=== PATIENT | male | born 1990 | race Two or more races ===

== ENCOUNTER 2016-10-14 16:19 | Emergency (ER) | payer MEDICAID, OTHER ==
[~2016-10-14] VITALS: Ht 182.9 cm; Wt 93.0 kg
[~2016-10-14 16:19] MED LIST: ALBUTEROL SULF8.5 GM INH; ALLEGRA ALLERG180 M1 PO; AMOXICILLIN500 MG ORAL; AZITHROMYCIN250 MG ORAL; CLINDAMYCIN HC300 MG ORAL; CORTISPORIN EAR10 ML RIGHT EAR; FLONASE1 SPRAYS; IBUPROFEN600 MG ORAL; NKM; NORCO 5-325 TA1 EACH ORAL; PROMETHAZINE-C118 M1 ORAL
[2016-10-14 17:05] LABS: BASOPHILS % (AUTO) 1.1 % (0.0-2.0); EOSINOPHILS % (AUTO) 0.9 % (0.0-3.0); LYMPHOCYTES % (AUTO) 23.1 % (20.0-45.0); MEAN CORPUSCULAR HEMOGLOBIN 30.2 PG (27.0-31.0); MEAN CORPUSCULAR HGB CONC 33.1 G/DL (32.0-36.0); MEAN CORPUSCULAR VOLUME 91 FL (80-99); MEAN PLATELET VOLUME 7.8 FL (6.5-10.1); MONOCYTES % (AUTO) 8.5 % (1.0-10.0); NEUTROPHILS % (AUTO) 66.5 % (45.0-75.0); PLATELET COUNT 274 K/UL (150-450); WHITE BLOOD COUNT 12.3 K/UL (4.8-10.8)
[2016-10-14 17:32] LABS: TROPONIN I < 0.30 ng/mL (<=0.30)
[2016-10-14 17:33] LABS: ALANINE AMINOTRANSFERASE 22 U/L (3-41); ALBUMIN/GLOBULIN RATIO 1.6 (1.0-2.7); ANION GAP 17 (5-15); ASPARTATE AMINO TRANSFERASE 21 U/L (5-40); CALCIUM 9.6 mg/dL (8.6-10.2); CARBON DIOXIDE 24 mEQ/L (20-30); CHLORIDE 100 mEQ/L (98-107); CREATININE 0.8 mg/dL (0.7-1.2); GLOMERULAR FILTRATION RATE > 60 mL/min (>60); HEMOLYSIS 7; POTASSIUM 4.6 mEQ/L (3.4-4.9); SODIUM 141 mEQ/L (135-145); TOTAL PROTEIN 7.3 g/dL (6.6-8.7)
[2016-10-14 17:43] LABS: CKMB < 1.5 ng/mL (< 6.7)
[2016-10-14] MEDS ORDERED: Ketorolac 30mg Inj IV ONE (18:00)
[2016-10-14] MEDS ORDERED: IBUPROFEN600 MG ORAL (18:01)
[2016-10-14 18:09] VITALS: BP 104/63
--- NOTE | 2016-10-14 18:34 | Emergency Room Report ---
History of Present Illness General Chief Complaint: Chest Pain Source: Patient Present Illness HPI 26-year-old male presents to ED for evaluation. States today he developed chest pain with some shortness of breath. States pain was left-sided, 5/10, sharp, worse with deep breaths. Denies shortness of breath. Denies cardiac history. Denies smoking or drug use. Denies trauma. No other aggravating relieving factors. Denies any other associated symptoms Allergies: Coded Allergies: No Known Allergies (Unverified , 12/28/12) Patient History Past Medical History: none Past Surgical History: none Pertinent Family History: none Social History: Denies: alcohol use, drug use, smoking Immunizations: UTD Reviewed Nursing Documentation: PMH: Agreed, PSxH: Agreed Nursing Documentation-PMH Past Medical History: No Stated History Review of Systems All Other Systems: negative except mentioned in HPI Physical Exam Vital Signs Date Time Temp Pulse Resp B/P Pulse Ox O2 Delivery O2 Flow Rate FiO2 10/14/16 16:34 97.9 67 20 108/66 100 Room Air Sp02 EP Interpretation: reviewed, normal General Appearance: no apparent distress, alert, GCS 15, non-toxic Head: normocephalic, atraumatic Eyes: bilateral eye PERRL, bilateral eye normal inspection ENT: hearing grossly normal, normal pharynx, no angioedema, normal voice Neck: full range of motion, supple/symm/no masses Respiratory: lungs clear, normal breath sounds, speaking full sentences, other - reproducible chest wall pain Cardiovascular #1: regular rate, rhythm, no edema Cardiovascular #2: 2+ carotid (R), 2+ carotid (L), 2+ radial (R), 2+ radial (L) , 2+ dorsalis pedis (R), 2+ dorsalis pedis (L) Gastrointestinal: normal bowel sounds, non tender, soft, non-distended, no guarding, no rebound Rectal: deferred Genitourinary: normal inspection, no CVA tenderness Musculoskeletal: back normal, gait/station normal, normal range of motion, non- tender Neurologic: alert, oriented x3, responsive, motor strength/tone normal, sensory intact, speech normal Psychiatric: judgement/insight normal, memory normal, mood/affect normal, no suicidal/homicidal ideation Reflexes: 3+ bicep (R), 3+ bicep (L), 3+ tricep (R), 3+ tricep (L), 3+ knee (R) , 3+ knee (L) Skin: normal color, no rash, warm/dry, well hydrated Lymphatic: no adenopathy Medical Decision Making Diagnostic Impression: Primary Impression: Chest wall pain ER Course Hospital Course 26-year-old male presents ED complaining of reproducible chest wall pain Differential diagnoses include: Rib fracture, UT/unstable angina, contusion, muscle strain Clinical course Patient placed on stretcher. After initial history and physical I ordered labs , EKG, chest x-ray. labs reviewed- all electrolytes normal, troponins negative, no leukocytosis, hemoglobin/hematocrit stable, d-dimer negative EKG - NSR, no acute changes Chest x-ray-no cardiomegaly, no rib fracture, no pneumothorax, no acute process clinical findings consistent with muscle strain/costochondritis. Per HEART score patient is a low-risk for adverse cardiac event. Reassurance given. Patient given Toradol for pain. Upon reassessment patient states pain is improved. I. I feel this is a highly complex case requiring extensive working including EKG/Rhythm strip, Xray/CT/US, Blood/urine lab work, repeat exams while in ED, and administration of strong opiates/narcotics for pain control, admission to hospital or close patient follow up. Diagnosis - chest wall pain Stable and discharged to home with prescription for Motrin. Instructed to followup with PMD. Return to ED if symptoms recur or worsen Labs Test 10/14/16 16:52 White Blood Count 12.3 K/UL (4.8-10.8) Red Blood Count 4.80 M/UL (4.70-6.10) Hemoglobin 14.5 G/DL (14.2-18.0) Hematocrit 43.8 % (42.0-52.0) Mean Corpuscular Volume 91 FL (80-99) Mean Corpuscular Hemoglobin 30.2 PG (27.0-31.0) Mean Corpuscular Hemoglobin Concent 33.1 G/DL (32.0-36.0) Red Cell Distribution Width 12.0 % (11.6-14.8) Platelet Count 274 K/UL (150-450) Mean Platelet Volume 7.8 FL (6.5-10.1) Neutrophils (%) (Auto) 66.5 % (45.0-75.0) Lymphocytes (%) (Auto) 23.1 % (20.0-45.0) Monocytes (%) (Auto) 8.5 % (1.0-10.0) Eosinophils (%) (Auto) 0.9 % (0.0-3.0) Basophils (%) (Auto) 1.1 % (0.0-2.0) D-Dimer 356 ng/mL (<500) Sodium Level 141 mEQ/L (135-145) Potassium Level 4.6 mEQ/L (3.4-4.9) Chloride Level 100 mEQ/L (98-107) Carbon Dioxide Level 24 mEQ/L (20-30) Anion Gap 17 (5-15) Blood Urea Nitrogen 15 mg/dL (7-23) Creatinine 0.8 mg/dL (0.7-1.2) Estimat Glomerular Filtration Rate > 60 mL/min (>60) Glucose Level 99 mg/dL (74-106) Calcium Level 9.6 mg/dL (8.6-10.2) Total Bilirubin 0.6 mg/dL (0.0-1.2) Aspartate Amino Transf (AST/SGOT) 21 U/L (5-40) Alanine Aminotransferase (ALT/SGPT) 22 U/L (3-41) Alkaline Phosphatase 82 U/L (40-129) Total Creatine Kinase 117 U/L (38-174) Creatine Kinase MB < 1.5 ng/mL (< 6.7) Creatine Kinase MB Relative Index Troponin I < 0.30 ng/mL (<=0.30) Total Protein 7.3 g/dL (6.6-8.7) Albumin 4.5 g/dL (3.5-5.2) Globulin 2.8 g/dL Albumin/Globulin Ratio 1.6 (1.0-2.7) EKG Diagnostic Results Rate: normal Rhythm: NSR ST Segments: no acute changes ASA given to the pt in ED: No Rhythm Strip Diag. Results EP Interpretation: yes Rhythm: NSR, no PVC's, no ectopy Chest X-Ray Diagnostic Results EP Interpretation: Yes Findings: no consolidation, no effusion, no pneumothorax, no acute cardiopulmonary disease Number of Views: 1 Last Vital Signs Date Time Temp Pulse Resp B/P Pulse Ox O2 Delivery O2 Flow Rate FiO2 10/14/16 18:09 98.2 65 14 104/63 100 Room Air Status: improved Disposition: HOME, SELF-CARE Condition: Stable Scripts Ibuprofen* (MOTRIN*) 600 Mg Tablet 600 MG ORAL Q8H Y for For Pain, #30 TAB 0 Refills Prov: SEMAJ DIAZ M.D. 10/14/16 Patient Instructions: Nonspecific Chest Pain SEMAJ DIAZ M.D. Oct 14, 2016 18:34
--- NOTE | 2016-10-16 08:59 | Diagnostic Imaging Report ---
Indication: CP Technique: XRAY CHEST 1 V Comparison: 09/24/2015. Findings: The cardiomediastinal silhouette is normal. The lungs are clear. There is no evidence of pleural fluid. The bones are unremarkable. Impression: No acute abnormality. Negative chest.
--- NOTE | 2016-10-16 13:56 | Cardiology Report ---
APPROVED REPORT EKG Measurement Heart [id number] Normal sinus rhythm Normal ECG
== END 2016-10-14 18:13 | disposition home or self-care (01) ==
LOC: EMR 16:40
DX: R07.89 Other chest pain (principal); R06.02 Shortness of breath
CPT/HCPCS: 36415; 71010; 80053; 82550; 82553; 84484; 85025; 85379; 93005; 96374; 99284; J1885

== ENCOUNTER 2018-01-30 10:54 | Emergency (ER) | payer MEDICAID ==
[~2018-01-30] VITALS: Ht 180.3 cm; Wt 88.5 kg
[2018-01-30 11:09] VITALS: BP 131/82
[2018-01-30] MEDS ORDERED: LORazepam Inj 2mg/ml 1ml IV ONE (11:45)
[2018-01-30 12:24] VITALS: BP 112/71
--- NOTE | 2018-01-30 12:24 | Diagnostic Imaging Report ---
Indication: Chest pain Comparison: 10/14/2016 A single view chest radiograph was obtained. Findings: Cardiomediastinal appearance is within normal limits for age. Pulmonary vascularity is appropriate. The diaphragmatic contour is smooth and costophrenic angles are sharp. No pleural effusions are identified. The bones are unremarkable. Impression: No acute findings
[2018-01-30 12:42] LABS: BASOPHILS % (AUTO) 1.5 % (0.0-2.0); EOSINOPHILS % (AUTO) 1.1 % (0.0-3.0); HEMATOCRIT 46.2 % (42.0-52.0); HEMOGLOBIN 15.8 G/DL (14.2-18.0); MEAN CORPUSCULAR VOLUME 89 FL (80-99); MONOCYTES % (AUTO) 10.2 % (1.0-10.0); NEUTROPHILS % (AUTO) 45.1 % (45.0-75.0); PLATELET COUNT 249 K/UL (150-450); RED BLOOD COUNT 5.17 M/UL (4.70-6.10); RED CELL DISTRIBUTION WIDTH 10.6 % (11.6-14.8); WHITE BLOOD COUNT 6.6 K/UL (4.8-10.8)
[2018-01-30 12:54] LABS: ANION GAP 13 mmol/L (5-15); BLOOD UREA NITROGEN 8 mg/dL (7-18); CALCIUM 9.6 MG/DL (8.5-10.1); CARBON DIOXIDE 25 MMOL/L (21-32); CHLORIDE 103 MMOL/L (98-107); POTASSIUM 3.8 MMOL/L (3.5-5.1); SODIUM 141 MMOL/L (136-145)
[2018-01-30 12:57] LABS: INR 1.1 (0.9-1.1)
[2018-01-30 13:08] LABS: ALANINE AMINOTRANSFERASE 30 U/L (12-78); ALBUMIN 4.6 G/DL (3.4-5.0); ALBUMIN/GLOBULIN RATIO 1.3 (1.0-2.7); ALKALINE PHOSPHATASE 60 U/L (46-116); ASPARTATE AMINO TRANSFERASE 17 U/L (15-37); BILIRUBIN,TOTAL 1.8 MG/DL (0.2-1.0); CREATINE KINASE 121 U/L (26-308)
[2018-01-30 13:09] LABS: BILIRUBIN,DIRECT 0.3 MG/DL (0.0-0.3)
[2018-01-30 14:24] VITALS: BP 109/71
[2018-01-30 14:45] LABS: APPEARANCE,URINE CLEAR; BILIRUBIN, URINE NEGATIVE (NEGATIVE); COLOR,URINE PALE YELLOW; GLUCOSE, URINE (UA) NEGATIVE (NEGATIVE); KETONES,URINE 1+ (NEGATIVE); LEUKOCYTE ESTERASE ,URINE 1+ (NEGATIVE); NITRITE,URINE NEGATIVE (NEGATIVE); PH,URINE 8 (4.5-8.0); PROTEIN,URINE NEGATIVE (NEGATIVE); UROBILINOGEN,URINE NORMAL MG/DL (0.0-1.0)
--- NOTE | 2018-01-30 15:35 | Emergency Room Report ---
History of Present Illness General Chief Complaint: Pain Source: Patient Present Illness HPI Patient presents with chest pain and anxiety. This has been going on for several months. However, the chest pain has worsened over the last few days. He feels pressure substernally and has some dyspnea with this. It feels like he needs to catch his breath. Last night he had palpitations. At one point last night his heart rate was 173 according to his watch. This resolved spontaneously. Though his heart rate is normal, he feels his heart pounding. He rates the pain 6/10 in his chest, radiating to his shoulder. Not exertional or pleuritic. He has had trouble sleeping thinking about work and his family. No SI or HI. In the past he has tried melatonin, xanax which he got from a friend. The latter helped for a short period, but he has still felt anxious. Occasional nausea without vomiting. Never seen professional for help. No fevers, URI sy, leg swelling or calf pain. He has gained weight during the past few months. No headache. No rashes. No urinary sy. No polies. 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 daughter at home and girlfriend Reviewed Nursing Documentation: PMH: Agreed; PSxH: Agreed Nursing Documentation-PMH Past Medical History: No Stated History Review of Systems All Other Systems: negative except mentioned in HPI Physical Exam Vital Signs Date Time Temp Pulse Resp B/P (MAP) Pulse Ox O2 Delivery O2 Flow Rate FiO2 01/30/18 10:59 98.8 82 20 131/82 98 Room Air 98.8 Sp02 EP Interpretation: reviewed, normal General Appearance: well appearing, no apparent distress, GCS 15 Head: normocephalic, atraumatic Eyes: bilateral eye normal inspection, bilateral eye PERRL, bilateral eye EOMI ENT: moist mucus membranes Neck: supple Respiratory: chest non-tender, lungs clear, normal breath sounds Cardiovascular #1: regular rate, rhythm Cardiovascular #2: 2+ radial (R) Gastrointestinal: normal inspection, normal bowel sounds, non tender, no mass, non-distended Musculoskeletal: back normal, gait/station normal, normal range of motion, no calf tenderness Neurologic: alert, oriented x3, communication consultant III-XII nml as tested, motor strength/tone normal, DTRs symmetric, sensory intact, cerebellar normal, normal gait, speech normal Psychiatric: no suicidal/homicidal ideation, anxious Skin: normal inspection, warm/dry Medical Decision Making Diagnostic Impression: Primary Impression: Stress reaction ER Course Patient presents with chest pain and anxiety with alleged rapid heart rate last night. DDx: SVT, pericarditis, pleurisy, PE, hyperventilation, anxiety, diabetes amongst others. VS and hx against PE. Evaluation with EKG, CXR, labs. Treatment with IV hydration and cardiac observation. Patient will be given a dose of ativan. EKG NSR, no injury. CXR normal. Labs with normal CBC and CMP (min elevation bili ? lab error). Tox + THC. Improved with observation. No arrhythmia on monitor. Discussed findings and suggested treatment plan. Patient stable for outpatient observation and treatment. Laboratory Tests Test 01/30/18 11:50 01/30/18 14:22 White Blood Count 6.6 K/UL (4.8-10.8) Red Blood Count 5.17 M/UL (4.70-6.10) Hemoglobin 15.8 G/DL (14.2-18.0) Hematocrit 46.2 % (42.0-52.0) Mean Corpuscular Volume 89 FL (80-99) Mean Corpuscular Hemoglobin 30.5 PG (27.0-31.0) Mean Corpuscular Hemoglobin Concent 34.1 G/DL (32.0-36.0) Red Cell Distribution Width 10.6 % (11.6-14.8) L Platelet Count 249 K/UL (150-450) Mean Platelet Volume 7.8 FL (6.5-10.1) Neutrophils (%) (Auto) 45.1 % (45.0-75.0) Lymphocytes (%) (Auto) 42.0 % (20.0-45.0) Monocytes (%) (Auto) 10.2 % (1.0-10.0) H Eosinophils (%) (Auto) 1.1 % (0.0-3.0) Basophils (%) (Auto) 1.5 % (0.0-2.0) Erythrocyte Sedimentation Rate 2 MM/HR (0-15) Prothrombin Time 11.4 SEC (9.30-11.50) Prothrombin Time INR 1.1 (0.9-1.1) PTT 27 SEC (23-33) Sodium Level 141 MMOL/L (136-145) Potassium Level 3.8 MMOL/L (3.5-5.1) Chloride Level 103 MMOL/L (98-107) Carbon Dioxide Level 25 MMOL/L (21-32) Anion Gap 13 mmol/L (5-15) Blood Urea Nitrogen 8 mg/dL (7-18) Creatinine 1.0 MG/DL (0.55-1.30) Estimate Glomerular Filtration Rate > 60 mL/min (>60) Glucose Level 99 MG/DL (74-106) Calcium Level 9.6 MG/DL (8.5-10.1) Total Bilirubin 1.8 MG/DL (0.2-1.0) H Direct Bilirubin 0.3 MG/DL (0.0-0.3) Aspartate Amino Transferase (AST) 17 U/L (15-37) Alanine Aminotransferase (ALT) 30 U/L (12-78) Alkaline Phosphatase 60 U/L (46-116) Total Creatine Kinase 121 U/L (26-308) Troponin I 0.000 ng/mL (0.000-0.056) Total Protein 8.1 G/DL (6.4-8.2) Albumin 4.6 G/DL (3.4-5.0) Globulin 3.5 g/dL Albumin/Globulin Ratio 1.3 (1.0-2.7) Thyroid Stimulating Hormone (TSH) 0.787 uiU/mL (0.358-3.740) Serum Alcohol < 3 mg/dL Urine Color Pale yellow Urine Appearance Clear Urine pH 8 (4.5-8.0) Urine Specific [place] 1.010 (1.005-1.035) Urine Protein Negative (NEGATIVE) Urine Glucose (UA) Negative (NEGATIVE) Urine Ketones 1+ (NEGATIVE) H Urine Occult Blood Negative (NEGATIVE) Urine Nitrite Negative (NEGATIVE) Urine Bilirubin Negative (NEGATIVE) Urine Urobilinogen Normal MG/DL (0.0-1.0) Urine Leukocyte Esterase 1+ (NEGATIVE) H Urine RBC 0-2 /HPF (0 - 0) H Urine WBC 2-4 /HPF (0 - 0) Urine Squamous Epithelial Cells None /LPF (NONE/OCC) Urine Bacteria Few /HPF (NONE) Urine Opiates Screen Negative (NEGATIVE) Urine Barbiturates Screen Negative (NEGATIVE) Phencyclidine (PCP) Screen Negative (NEGATIVE) Urine Amphetamines Screen Negative (NEGATIVE) Urine Benzodiazepines Screen Negative (NEGATIVE) Urine Cocaine Screen Negative (NEGATIVE) Urine Marijuana (THC) Screen Positive (NEGATIVE) H EKG Diagnostic Results Rate: normal Rhythm: NSR ST Segments: no acute changes Rhythm Strip Diag. Results EP Interpretation: yes Rhythm: NSR, no PVC's, no ectopy Chest X-Ray Diagnostic Results Chest X-Ray Diagnostic Results : Chest X-Ray Ordered: Yes # of Views/Limited/Complete: 1 View Indication: Other EP Interpretation: Yes Interpretation: no consolidation, no effusion, no pneumothorax Impression: No acute disease Electronically Signed by: Electronically signed by Sp Jose MD Last Vital Signs Date Time Temp Pulse Resp B/P (MAP) Pulse Ox O2 Delivery O2 Flow Rate FiO2 01/30/18 15:52 98.7 78 21 128/70 100 Room Air 98.8 Status: improved Disposition: HOME, SELF-CARE Condition: Improved Referrals: [facility] (PCP) Sp Jose M.D. Jan 30, 2018 15:35
[2018-01-30 15:52] VITALS: BP 128/70
== END 2018-01-30 15:52 | disposition home or self-care (01) ==
LOC: EMR 11:46
DX: F43.9 Reaction to severe stress, unspecified (principal)
CPT/HCPCS: 36415; 71045; 80053; 80307; 80329; 81003; 82248; 82550; 84443; 84484; 85025; 85610; 85651; 85730; 93005; 96360; 96372; 99283

== ENCOUNTER 2018-02-02 04:54 | Emergency (ER) | payer MEDICAID ==
[~2018-02-02] VITALS: Ht 180.3 cm; Wt 88.5 kg
[2018-02-02] MEDS ORDERED: ATIVAN1 MG ORAL (05:09)
--- NOTE | 2018-02-02 05:10 | Emergency Room Report ---
History of Present Illness General Chief Complaint: Chest Pain Source: Patient, Significant Other Present Illness HPI Is a 27-year-old male with no past medical history. He present with chief complaint of chest pain and palpitation. He woke up said his heart was beating fast. He felt anxious and hyperventilating. His girlfriend said that he is breathing so fast that he stop breathing and passed out. Still having the symptoms. Was here 3 days ago for the same thing. Workup was unremarkable. No nausea no vomiting. Said he's been under a lot more stress. No fever chills. No diaphoresis. No exertional component. Allergies: Coded Allergies: No Known Allergies (Unverified , 12/28/12) Patient History Past Medical History: none, see triage record, old chart reviewed Past Surgical History: none Pertinent Family History: none Social History: Denies: smoking Immunizations: other Reviewed Nursing Documentation: PMH: Agreed; PSxH: Agreed Nursing Documentation-PMH Past Medical History: No History, Except For Hx Asthma: No - Bronchitis Review of Systems Eye: Denies: eye pain, blurred vision ENT: Denies: ear pain, nose congestion, throat swelling Respiratory: Reports: shortness of breath; Denies: cough Cardiovascular: Reports: chest pain, palpitations Gastrointestinal: Denies: abdominal pain, diarrhea, nausea, vomiting Musculoskeletal: Denies: back pain, joint pain Skin: Denies: rash Neurological: Denies: headache, numbness Endocrine: Denies: increased thirst, increased urine Hematologic/Lymphatic: Denies: easy bruising All Other Systems: negative except mentioned in HPI Physical Exam Vital Signs Date Time Temp Pulse Resp B/P (MAP) Pulse Ox O2 Delivery O2 Flow Rate FiO2 02/02/18 04:59 97.0 87 15 136/74 100 Room Air 97.0 vitals normal Sp02 EP Interpretation: reviewed, normal General Appearance: well appearing, no apparent distress, alert Head: normocephalic, atraumatic Eyes: bilateral eye PERRL, bilateral eye EOMI ENT: hearing grossly normal, normal pharynx Neck: full range of motion, supple, no meningismus Respiratory: chest non-tender, lungs clear, normal breath sounds Cardiovascular #1: regular rate, rhythm, no murmur Gastrointestinal: normal bowel sounds, non tender, no mass, no organomegaly, no bruit, non-distended Musculoskeletal: back normal, gait/station normal, normal range of motion Psychiatric: anxious Skin: warm/dry Medical Decision Making Diagnostic Impression: Primary Impression: Panic attack ER Course Patient presents with anxiety/panic attack. No evidence of ACS, PE, dissection to name a few. We'll discharge home. EKG Diagnostic Results Rate: normal Rhythm: NSR ST Segments: no acute changes Rhythm Strip Diag. Results Rhythm Strip Time: 05:08 EP Interpretation: yes Rhythm: NSR - 78 Other Impression 78 Last Vital Signs Date Time Temp Pulse Resp B/P (MAP) Pulse Ox O2 Delivery O2 Flow Rate FiO2 02/02/18 05:03 87 15 Room Air 02/02/18 04:59 97.0 136/74 100 97.0 Status: improved Disposition: HOME, SELF-CARE Condition: Stable Scripts Lorazepam* (ATIVAN*) 1 Mg Tablet 1 MG ORAL THREE TIMES A DAY for anxiety, #21 TAB Prov: AMADOU GUIDRY M.D. 02/02/18 Referrals: [facility] (PCP) Additional Instructions: Follow-up your doctor in a week. You may benefit from referral to see a psychologist or psychiatrist. You may need a Holter monitor or see a bordereau clerk for further workup also. Return if worse. AAMDOU GUIDRY M.D. Feb 02, 2018 05:10
[2018-02-02] MEDS ORDERED: LORazepam Inj 2mg/ml 1ml IM ONE (05:15)
[2018-02-02 05:18] VITALS: BP 136/74
== END 2018-02-02 05:20 | disposition home or self-care (01) ==
LOC: EMR 05:04
DX: F41.0 Panic disorder [episodic paroxysmal anxiety] (principal); R00.2 Palpitations
CPT/HCPCS: 96372; 99283

== ENCOUNTER 2018-02-11 21:51 | Emergency (ER) | payer MEDICAID ==
[~2018-02-11] VITALS: Ht 180.3 cm; Wt 88.5 kg
[~2018-02-11 21:51] MED LIST changes: +ATIVAN1 MG ORAL
[2018-02-11] MEDS ORDERED: LEXAPRO10 MG ORAL (21:56)
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
[2018-02-11] MEDS ORDERED: IBUPROFEN600 MG ORAL (23:41)
[2018-02-11] MEDS ORDERED: TRAMADOL HCL50 MG ORAL (23:41)
[2018-02-12 00:04] VITALS: BP 0/0
--- NOTE | 2018-02-12 11:24 | Diagnostic Imaging Report ---
Indication: Pain Technique: XRAY Ankle Compl Min 3v R Comparison: None Findings: Soft tissue swelling about the medial malleolus. No evidence of acute fracture. Ankle mortise intact on these nonstress views. No appreciable ankle joint effusion. Imaged hindfoot grossly unremarkable. No radiopaque foreign body seen. Impression: Soft tissue swelling about the medial malleolus. No evidence of acute fracture.
== END 2018-02-12 00:04 | disposition home or self-care (01) ==
LOC: EMR 22:20
DX: S93.401A Sprain of unspecified ligament of right ankle, initial encounter (principal); X50.1XXA Overexertion from prolonged static or awkward postures, initial encounter; Y93.75 Activity, martial arts; Y92.9 Unspecified place or not applicable; F41.9 Anxiety disorder, unspecified; F32.9 Major depressive disorder, single episode, unspecified
CPT/HCPCS: 99284

== ENCOUNTER 2018-03-23 09:44 | Emergency (ER) | payer MEDICAID ==
[~2018-03-23] VITALS: Ht 180.3 cm; Wt 88.5 kg
[~2018-03-23 09:44] MED LIST changes: +LEXAPRO10 MG ORAL; +TRAMADOL HCL50 MG ORAL
[2018-03-23 09:49] VITALS: BP 119/75
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
[2018-03-23 10:07] VITALS: BP 119/75
== END 2018-03-23 10:10 | disposition home or self-care (01) ==
LOC: EMR 10:05
DX: Z48.02 Encounter for removal of sutures (principal)
CPT/HCPCS: 99282

== ENCOUNTER 2019-06-09 20:00 | Emergency (ER) | payer MEDICAID ==
[~2019-06-09] VITALS: Ht 180.3 cm; Wt 88.5 kg
[2019-06-09] MEDS ORDERED: Omnipaque-300 100ml vial INJ PRN (20:15)
[2019-06-09 20:30] VITALS: BP 129/89
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
[2019-06-09 21:01] LABS: BASOPHILS % (AUTO) 0.7 % (0.0-2.0); EOSINOPHILS % (AUTO) 0.5 % (0.0-3.0); HEMATOCRIT 41.8 % (42.0-52.0); HEMOGLOBIN 14.9 G/DL (14.2-18.0); LYMPHOCYTES % (AUTO) 31.8 % (20.0-45.0); MEAN CORPUSCULAR VOLUME 87 FL (80-99); MONOCYTES % (AUTO) 9.6 % (1.0-10.0); NEUTROPHILS % (AUTO) 57.4 % (45.0-75.0); PLATELET COUNT 315 K/UL (150-450); RED BLOOD COUNT 4.81 M/UL (4.70-6.10); RED CELL DISTRIBUTION WIDTH 10.5 % (11.6-14.8); WHITE BLOOD COUNT 11.7 K/UL (4.8-10.8)
--- NOTE | 2019-06-09 21:01 | Emergency Room Report ---
History of Present Illness General Chief Complaint: Allergic Reaction Source: Patient Present Illness HPI 28-year-old male presents with palpitations, left flank pain, since 6:00pm, patient took a thermogenic fat burner known as Lipo Lauren. Patient then started having palpitations, left flank pain he states his urine turned a different color, he felt hot, aggravated by neurogenic fat burner, no alleviating factors severity is moderate, constant patient presents for evaluation Allergies: Coded Allergies: No Known Allergies (Unverified , 12/28/12) Patient History Past Medical History: see triage record Reviewed Nursing Documentation: PMH: Agreed; PSxH: Agreed Nursing Documentation-PMH Hx Asthma: No - Bronchitis History Of Psychiatric Problem: Yes - depression; insomnia Review of Systems All Other Systems: negative except mentioned in HPI Physical Exam Vital Signs Date Time Temp Pulse Resp B/P (MAP) Pulse Ox O2 Delivery O2 Flow Rate FiO2 06/09/19 20:01 98.4 101 19 129/89 (102) 98 Room Air Sp02 EP Interpretation: reviewed, normal General Appearance: well appearing, no apparent distress, alert Head: normocephalic, atraumatic Eyes: bilateral eye PERRL, bilateral eye EOMI ENT: uvula midline, dry mucus membranes Neck: supple, thyroid normal, supple/symm/no masses Respiratory: lungs clear, no respiratory distress, no retraction, no accessory muscle use Cardiovascular #1: normal peripheral pulses, no edema, no gallop, no murmur, tachycardia Gastrointestinal: non tender, soft, no guarding, no rebound Musculoskeletal: normal inspection Neurologic: alert, oriented x3 Psychiatric: anxious Skin: no rash, warm/dry Medical Decision Making Diagnostic Impression: Primary Impression: Rhabdomyolysis Qualified Codes: M62.82 - Rhabdomyolysis Additional Impression: Adverse drug effect Qualified Codes: T50.905A - Adverse effect of unspecified drugs, medicaments and biological substances, initial encounter ER Course 28-year-old male presents with muscle aches, left flank pain, after taking a pill at the gym which was a supplement. Patient with elevated CK, now downtrending with fluid rehydration, counseled patient not to take supplements, Counseled patient to take 1 to 2 days off work no heavy lifting, continue rehydration therapy Disposition home with return precautions joint decision-making was made with patient Laboratory Tests Test 06/09/19 20:50 06/09/19 22:30 06/09/19 22:57 White Blood Count 11.7 K/UL (4.8-10.8) H Red Blood Count 4.81 M/UL (4.70-6.10) Hemoglobin 14.9 G/DL (14.2-18.0) Hematocrit 41.8 % (42.0-52.0) L Mean Corpuscular Volume 87 FL (80-99) Mean Corpuscular Hemoglobin 30.9 PG (27.0-31.0) Mean Corpuscular Hemoglobin Concent 35.6 G/DL (32.0-36.0) Red Cell Distribution Width 10.5 % (11.6-14.8) L Platelet Count 315 K/UL (150-450) Mean Platelet Volume 6.9 FL (6.5-10.1) Neutrophils (%) (Auto) 57.4 % (45.0-75.0) Lymphocytes (%) (Auto) 31.8 % (20.0-45.0) Monocytes (%) (Auto) 9.6 % (1.0-10.0) Eosinophils (%) (Auto) 0.5 % (0.0-3.0) Basophils (%) (Auto) 0.7 % (0.0-2.0) Prothrombin Time 10.7 SEC (9.30-11.50) Prothrombin Time INR 1.0 (0.9-1.1) PTT 27 SEC (23-33) D-Dimer 0.45 mg/L FEU (0.00-0.49) Sodium Level 143 MMOL/L (136-145) Potassium Level 3.5 MMOL/L (3.5-5.1) Chloride Level 105 MMOL/L (98-107) Carbon Dioxide Level 24 MMOL/L (21-32) Anion Gap 14 mmol/L (5-15) Blood Urea Nitrogen 15 mg/dL (7-18) Creatinine 1.1 MG/DL (0.55-1.30) Estimate Glomerular Filtration Rate > 60 mL/min (>60) Glucose Level 111 MG/DL (74-106) H Calcium Level 9.6 MG/DL (8.5-10.1) Total Bilirubin 1.2 MG/DL (0.2-1.0) H Direct Bilirubin < 0.1 MG/DL (0.0-0.3) Aspartate Amino Transferase (AST) 53 U/L (15-37) H Alanine Aminotransferase (ALT) 49 U/L (12-78) Alkaline Phosphatase 86 U/L (46-116) Total Creatine Kinase 1403 U/L (26-308) H 1027 U/L (26-308) H Troponin I 0.000 ng/mL (0.000-0.056) Total Protein 8.1 G/DL (6.4-8.2) Albumin 4.2 G/DL (3.4-5.0) Globulin 3.9 g/dL Albumin/Globulin Ratio 1.1 (1.0-2.7) Lipase 92 U/L (73-393) Urine Color Pale yellow Urine Appearance Clear Urine pH 7 (4.5-8.0) Urine Specific [place] 1.005 (1.005-1.035) Urine Protein Negative (NEGATIVE) Urine Glucose (UA) Negative (NEGATIVE) Urine Ketones Negative (NEGATIVE) Urine Blood Negative (NEGATIVE) Urine Nitrite Negative (NEGATIVE) Urine Bilirubin Negative (NEGATIVE) Urine Urobilinogen Normal MG/DL (0.0-1.0) Urine Leukocyte Esterase Negative (NEGATIVE) Urine Opiates Screen Negative (NEGATIVE) Urine Barbiturates Screen Negative (NEGATIVE) Phencyclidine (PCP) Screen Negative (NEGATIVE) Urine Amphetamines Screen Negative (NEGATIVE) Urine Benzodiazepines Screen Negative (NEGATIVE) Urine Cocaine Screen Negative (NEGATIVE) Urine Marijuana (THC) Screen Positive (NEGATIVE) H CT/MRI/US Diagnostic Results CT/MRI/US Diagnostic Results : Impression Preliminary Findings Only See Final Report For Complete Findings CT ABDOMEN & PELVIS With Contrast: INDICATION: pain TECHNIQUE: Multiple, contiguous axial cuts of the abdomen and pelvis are obtained from the lung bases to the ischial tuberosities following the administration of IV contrast. Sagittal and coronal reformatted images are available. COMPARISON: none FINDINGS: The lung bases are clear. The liver and spleen are normal in size and free of mass lesions. The gallbladder, bile ducts and pancreas are normal. The adrenal gland are unremarkable. The kidneys are normal in size and contour. No lesion or hydronephrosis. The appendix is unremarkable, as is the rest of the GI tract. Aorta is normal caliber. No adenopathy or extraluminal air. The osseous structures are normal IMPRESSION: Normal enhanced CT of the abdomen and pelvis. CT CHEST With Contrast: INDICATION: pain TECHNIQUE: Multiple, contiguous 5 mm axial cuts of the chest are obtained following the administration of IV contrast. High resolution axial images as well as sagittal and coronal reformatted images are available. COMPARISON: none FINDINGS: No mass lesion are seen. No adenopathy , pneumothorax or effusions. The aorta is within normal limits, no aneurysm or dissection. The cardiomediastinal structures are normal. The lungs are clear. The osseous structures are unremarkable. IMPRESSION: Normal CT Chest with contrast. Radiologist: Gia Alonso MD Study ready at 22:37 and initial results transmitted at 22:46 Last Vital Signs Date Time Temp Pulse Resp B/P (MAP) Pulse Ox O2 Delivery O2 Flow Rate FiO2 06/09/19 20:01 98.4 101 19 129/89 (102) 98 Room Air Disposition: HOME, SELF-CARE Condition: Stable Referrals: [facility] Jace Malik [facility]. [facility] Patient Instructions: Rhabdomyolysis Additional Instructions: The patient was provided with discharge instructions, notified to follow-up with a primary care doctor and or specialist in the next 24-48 hours, and to return to the ED if they have worsening of their symptoms. Please note that this report is being documented using [employer] technology. This can lead to erroneous entry secondary to incorrect interpretation by the dictating instrument. PLEASE DO NOT TAKE ANYMORE GYM SUPPLEMENTS. Presley Meléndez MD Jun 09, 2019 21:01
[2019-06-09 21:27] LABS: ANION GAP 14 mmol/L (5-15); BLOOD UREA NITROGEN 15 mg/dL (7-18); CALCIUM 9.6 MG/DL (8.5-10.1); CARBON DIOXIDE 24 MMOL/L (21-32); CHLORIDE 105 MMOL/L (98-107); CREATININE 1.1 MG/DL (0.55-1.30); POTASSIUM 3.5 MMOL/L (3.5-5.1); SODIUM 143 MMOL/L (136-145)
[2019-06-09 21:37] LABS: ALANINE AMINOTRANSFERASE 49 U/L (12-78); ALBUMIN 4.2 G/DL (3.4-5.0); ALBUMIN/GLOBULIN RATIO 1.1 (1.0-2.7); ALKALINE PHOSPHATASE 86 U/L (46-116); ASPARTATE AMINO TRANSFERASE 53 U/L (15-37); BILIRUBIN,TOTAL 1.2 MG/DL (0.2-1.0)
[2019-06-09 21:43] LABS: BILIRUBIN,DIRECT < 0.1 MG/DL (0.0-0.3)
--- NOTE | 2019-06-09 21:54 | NUR ---
ED Nurse Note: PT TAKEN TO CT
[2019-06-09 22:05] LABS: CREATINE KINASE 1403 U/L (26-308)
--- NOTE | 2019-06-09 22:08 | NUR ---
ED Nurse Note: PT RETURNED FROM CT
[2019-06-09 22:12] VITALS: BP 124/88
--- NOTE | 2019-06-09 22:16 | Emergency Room Report ---
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 Patient appears to be slightly dehydrated. Complains of history of anxiety and also taking propranolol as well as Lexapro. Complains of lower back pain however denies pleuritic chest pain and palpitations at this time. Denies headache and dizziness.. Patient appears try putting complaining of left flank pain rating a 10 out of 10. Reports that he also had fresh blood in stool and hematuria. Denies fever and chills. Slightly diaphoretic. Denies drug use, alcohol intake, tobacco smoke. (Laz Ellison) Allergies: Coded Allergies: No Known Allergies (Unverified , 12/28/12) Patient History Past Medical History: see triage record Past Surgical History: unable to obtain Pertinent Family History: none Immunizations: UTD Reviewed Nursing Documentation: PMH: Agreed; PSxH: Agreed (Laz Ellison) Nursing Documentation-PMH Hx Asthma: No - Bronchitis History Of Psychiatric Problem: Yes - depression; insomnia (Laz Ellison) Review of Systems All Other Systems: negative except mentioned in HPI (Laz Ellison) Physical Exam Vital Signs Date Time Temp Pulse Resp B/P (MAP) Pulse Ox O2 Delivery O2 Flow Rate FiO2 06/09/19 20:01 98.4 101 19 129/89 (102) 98 Room Air Sp02 EP Interpretation: abnormal - Tachycardic General Appearance: no apparent distress, alert, GCS 15, non-toxic, mild distress Head: normocephalic, atraumatic Eyes: bilateral eye normal inspection, bilateral eye PERRL ENT: hearing grossly normal, normal pharynx, no angioedema, normal voice Neck: full range of motion, supple, supple/symm/no masses Respiratory: chest non-tender, lungs clear, normal breath sounds, no rhonchi, no respiratory distress, no retraction, no accessory muscle use, no wheezing, speaking full sentences Cardiovascular #1: regular rate, rhythm, no edema, no gallop, no JVD, no murmur Cardiovascular #2: 2+ carotid (R), 2+ carotid (L), 2+ radial (R), 2+ radial (L) Gastrointestinal: normal bowel sounds, non tender, soft, no mass, non-distended , no guarding, no hernia, no pulsatile mass, no rebound Rectal: deferred Genitourinary: no CVA tenderness Musculoskeletal: back normal, gait/station normal, normal range of motion, non- tender, no calf tenderness Neurologic: alert, oriented x3, responsive, motor strength/tone normal, sensory intact, speech normal Psychiatric: judgement/insight normal, memory normal, mood/affect normal, no suicidal/homicidal ideation Skin: no rash Lymphatic: no adenopathy (Laz Ellison) Medical Decision Making PA Attestation All my diagnosis and treatment plans were reviewed ad discussed with my supervising physician Dr. 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 Patient appears to be slightly dehydrated. Complains of history of anxiety and also taking propranolol as well as Lexapro. Complains of lower back pain however denies pleuritic chest pain and palpitations at this time. Denies headache and dizziness.. Patient appears try putting complaining of left flank pain rating a 10 out of 10. Reports that he also had fresh blood in stool and hematuria. Denies fever and chills. Slightly diaphoretic. Denies drug use, alcohol intake, tobacco smoke. Ddx considered but are not limited to: appendicitis, cholecystis, gastritis, gastroenteritis, UTI, pyelonephritis, SBO, diverticulitis, rhabdomyolysis Vital signs: are WNL, pt. is afebrile H&PE are most consistent with: abdominal pain, sob ORDERS: abdominal CT, abdominal pain set, EKG, ED INTERVENTIONS: Breathing treatment, NS bolus, Zofran I signed the patient to Dr. Meléndez at 10:00 PM . Patient stable at time of signout (Laz Ellison) ER Course Signout received refer to my note Preliminary Findings Only See Final Report For Complete Findings CT ABDOMEN & PELVIS With Contrast: INDICATION: pain TECHNIQUE: Multiple, contiguous axial cuts of the abdomen and pelvis are obtained from the lung bases to the ischial tuberosities following the administration of IV contrast. Sagittal and coronal reformatted images are available. COMPARISON: none FINDINGS: The lung bases are clear. The liver and spleen are normal in size and free of mass lesions. The gallbladder, bile ducts and pancreas are normal. The adrenal gland are unremarkable. The kidneys are normal in size and contour. No lesion or hydronephrosis. The appendix is unremarkable, as is the rest of the GI tract. Aorta is normal caliber. No adenopathy or extraluminal air. The osseous structures are normal IMPRESSION: Normal enhanced CT of the abdomen and pelvis. CT CHEST With Contrast: INDICATION: pain TECHNIQUE: Multiple, contiguous 5 mm axial cuts of the chest are obtained following the administration of IV contrast. High resolution axial images as well as sagittal and coronal reformatted images are available. COMPARISON: none FINDINGS: No mass lesion are seen. No adenopathy , pneumothorax or effusions. The aorta is within normal limits, no aneurysm or dissection. The cardiomediastinal structures are normal. The lungs are clear. The osseous structures are unremarkable. IMPRESSION: Normal CT Chest with contrast. Radiologist: Gia Alonso MD Study ready at 22:37 and initial results transmitted at 22:46 (Presley Meléndez MD) EKG Diagnostic Results Rate: tachycardiac Rhythm: other - tachy ST Segments: no acute changes Other Impression no acute ST changes (Laz Ellison) Chest X-Ray Diagnostic Results Chest X-Ray Diagnostic Results : Chest X-Ray Ordered: Yes # of Views/Limited/Complete: 1 View Indication: Shortness of Breath EP Interpretation: Yes PA Xray: Interpretation reviewed, by supervising , and agrees with findings. Interpretation: no consolidation, no effusion, no pneumothorax Impression: No acute disease Electronically Signed by: Laz Call PA-C) Last Vital Signs Date Time Temp Pulse Resp B/P (MAP) Pulse Ox O2 Delivery O2 Flow Rate FiO2 11/4/19 20:30 98.4 98 19 129/89 98 Room Air (Laz Ellison) Laz Ellison Jun 09, 2019 22:16 Presley Meléndez MD Jun 10, 2019 00:12
--- NOTE | 2019-06-09 22:47 | Diagnostic Imaging Report ---
CLINICAL INDICATION:Left flank pain, blood in stool, shortness of breath TECHNIQUE: No oral contrast, per emergency room physician request. IV administration nonionic contrast. Multiphasic spiral acquisitions obtained through the chest, abdomen, and pelvis. Multiplanar reconstructions were generated. Total dose length product 1938 mGycm. CTDIvol(s) 16, 16 mGy. Radiation dose was minimized using automated exposure control COMPARISON: none FINDINGS Chest: The lungs are clear. No infiltrates, effusions, masses, congestion, or nodules. The heart size is normal. No pericardial effusion. No mediastinal or hilar mass or adenopathy. The included thyroid is unremarkable. No axillary or chest wall mass or adenopathy. The bones are unremarkable. Abdomen pelvis: Normal appendix. No evidence of diverticulosis or diverticulitis. No small bowel distention. There is questionably mild wall thickening of left upper quadrant jejunal loops. No free or loculated intraperitoneal gas or fluid is evident. The stomach and duodenum are unremarkable. The gallbladder is nondistended. The liver, bile ducts, pancreas, spleen, adrenals, kidneys are unremarkable. No renal or ureteral calculi, hydronephrosis, or hydroureter. No pelvic mass or adenopathy. The bones are unremarkable. IMPRESSION: Negative. No evidence of acute or significant thoracic, abdominal, or pelvic pathology This agrees with the preliminary interpretation provided overnight by [facility] teleradiology service. The CT scanner at [facility] is accredited by the [employer] and the scans are performed using protocols designed to limit radiation exposure to as low as reasonably achievable to attain images of sufficient resolution adequate for diagnostic evaluation.
[2019-06-09 22:54] LABS: APPEARANCE,URINE CLEAR; BILIRUBIN, URINE NEGATIVE (NEGATIVE); COLOR,URINE PALE YELLOW; GLUCOSE, URINE (UA) NEGATIVE (NEGATIVE); KETONES,URINE NEGATIVE (NEGATIVE); LEUKOCYTE ESTERASE ,URINE NEGATIVE (NEGATIVE); NITRITE,URINE NEGATIVE (NEGATIVE); PH,URINE 7 (4.5-8.0); PROTEIN,URINE NEGATIVE (NEGATIVE); UROBILINOGEN,URINE NORMAL MG/DL (0.0-1.0)
[2019-06-09 23:49] LABS: CREATINE KINASE 1027 U/L (26-308)
[2019-06-10 00:12] VITALS: BP 119/85
[2019-06-10 00:15] VITALS: BP 119/89
--- NOTE | 2019-06-10 00:15 | NUR ---
ER DISCHARGE NOTE: Patient is cleared to be discharged per ERMD, pt is aox4, on room air, with stable vital signs. pt was given dc and prescription instructions, pt was able to verbalize understanding, pt id band and iv site removed without complications. pt is able to ambulate with steady gait. pt took all belongings.
--- NOTE | 2019-06-10 12:19 | Diagnostic Imaging Report ---
Indication: Chest pain Technique: One view of the chest Comparison: 01/30/2018 Findings: Lungs and pleural spaces are clear. Heart size is normal. No significant change Impression: No acute process
--- NOTE | 2019-06-13 11:32 | Cardiology Report ---
APPROVED REPORT EKG Measurement Heart [id number] Normal sinus rhythm Normal ECG
== END 2019-06-10 00:15 | disposition home or self-care (01) ==
LOC: EMR 20:17
DX: R10.9 Unspecified abdominal pain (principal); R06.02 Shortness of breath; E86.0 Dehydration; F41.9 Anxiety disorder, unspecified; Z79.899 Other long term (current) drug therapy; G47.00 Insomnia, unspecified; F32.9 Major depressive disorder, single episode, unspecified; R00.0 Tachycardia, unspecified
CPT/HCPCS: 36415; 71045; 71260; 74177; 80053; 80307; 81003; 82248; 82550; 83690; 84484; 85025; 85379; 85610; 85730; 86850; 86900; 86901; 93005; 96361; 96374; J2405; Q9967; Z7502; 99284; J7030

== ENCOUNTER 2019-06-12 13:16 | Emergency (ER) | payer MEDICAID ==
[~2019-06-12] VITALS: Ht 180.3 cm; Wt 88.5 kg
[2019-06-12 13:43] VITALS: BP 98/64
[2019-06-12 14:17] LABS: APPEARANCE,URINE CLEAR; BILIRUBIN, URINE NEGATIVE (NEGATIVE); COLOR,URINE PALE YELLOW; GLUCOSE, URINE (UA) NEGATIVE (NEGATIVE); KETONES,URINE NEGATIVE (NEGATIVE); LEUKOCYTE ESTERASE ,URINE NEGATIVE (NEGATIVE); NITRITE,URINE NEGATIVE (NEGATIVE); PH,URINE 6 (4.5-8.0); PROTEIN,URINE NEGATIVE (NEGATIVE); UROBILINOGEN,URINE NORMAL MG/DL (0.0-1.0)
--- NOTE | 2019-06-12 14:40 | Emergency Room Report ---
History of Present Illness General Chief Complaint: Nausea Source: Medical Record Present Illness HPI 28-year-old male presents to the emergency department complaining of diffuse abdominal pain with multiple episodes of vomiting since this morning. Patient also reports he has been having dark-colored urine and was just seen here in the emergency department 3 days ago. Patient reports that he followed up with his primary care provider yesterday and today with worsening of his symptoms his primary care provider instructed him to return to the ED to evaluate for acute kidney injury. Patient denies fevers or chills, recent travel or ill contacts with similar symptoms. He denies constipation or diarrhea. Patient denies blood in the vomit or stool and he denies black tarry stools. Patient does report history of marijuana use he denies other illicit drug use he denies taking any medications he states that he was instructed to DC all of his medications. I significant past medical history denies bloating or swelling of the lower extremities. Denies CP, Palpitations, LOC, AMS, dizziness, changes in vision, sensation, paresthesias, or a sudden severe headache. He denies urinary urgency, frequency, hematuria or dysuria. Patient denies penile discharge or pain/ swelling of the testicles. Pt. denies ETOH use. Allergies: Coded Allergies: No Known Allergies (Unverified , 12/28/12) Patient History Past Medical History: see triage record Past Surgical History: none Pertinent Family History: none Social History: Reports: drug use - thc Immunizations: UTD Reviewed Nursing Documentation: PMH: Agreed; PSxH: Agreed Nursing Documentation-PMH Past Medical History: No History, Except For Hx Asthma: No - Bronchitis Review of Systems All Other Systems: negative except mentioned in HPI Physical Exam Vital Signs Date Time Temp Pulse Resp B/P (MAP) Pulse Ox O2 Delivery O2 Flow Rate FiO2 06/12/19 13:31 97.3 69 18 98/64 (75) 99 Room Air Sp02 EP Interpretation: reviewed, normal General Appearance: no apparent distress, alert, GCS 15, non-toxic Head: normocephalic, atraumatic Eyes: bilateral eye normal inspection, bilateral eye PERRL ENT: hearing grossly normal, normal voice Neck: full range of motion Respiratory: lungs clear, normal breath sounds, speaking full sentences Cardiovascular #1: regular rate, rhythm Gastrointestinal: normal bowel sounds, non tender, soft, non-distended, no guarding Genitourinary: normal inspection, no CVA tenderness Musculoskeletal: gait/station normal, normal range of motion, non-tender Neurologic: alert, oriented x3, responsive, motor strength/tone normal, sensory intact, speech normal, grossly normal Psychiatric: judgement/insight normal Skin: no rash, normal color Lymphatic: no adenopathy Medical Decision Making PA Attestation Dr. Cheng is my supervising Physician whom patient management has been discussed with. Diagnostic Impression: Primary Impression: Cyclical vomiting syndrome ER Course 28-year-old male presents to the emergency department complaining of diffuse abdominal pain with multiple episodes of vomiting since this morning. Patient also reports he has been having dark-colored urine and was just seen here in the emergency department 3 days ago. Patient reports that he followed up with his primary care provider yesterday and today with worsening of his symptoms his primary care provider instructed him to return to the ED to evaluate for acute kidney injury. Patient denies fevers or chills, recent travel or ill contacts with similar symptoms. He denies constipation or diarrhea. Patient denies blood in the vomit or stool and he denies black tarry stools. Patient does report history of marijuana use he denies other illicit drug use he denies taking any medications he states that he was instructed to DC all of his medications. I significant past medical history denies bloating or swelling of the lower extremities. Denies CP, Palpitations, LOC, AMS, dizziness, changes in vision, sensation, paresthesias, or a sudden severe headache. He denies urinary urgency, frequency, hematuria or dysuria. Patient denies penile discharge or pain/ swelling of the testicles. Pt. denies ETOH use. Ddx considered but are not limited to GE, colitis, acute appendicitis, SBO, H.pylori, Gastritis, PNA, renal calculi, UTI, OFELIA, dehydration, rhabdo, cannabinoid induced cyclical vomiting pericarditis just to name a few. Vital signs: pt. is afebrile, H&PE are most consistent with Gastritis - no evidence to suggest acute abdomen on physical exam.--Labs performed to rule out OFELIA, and rhabdo as review of previous visit patient had significantly elevated CK. Lipase was normal and very very mild elevation in AST 3 days ago. ORDERS: -CBC: WBC at 16.3--- suspect reactive as no other signs of significant bacterial infection, no fever. -CMP: WNL -UDS: Positive for THC -UA: WNL ED INTERVENTIONS: -1.5 L of normal saline bolus -4 mg Zofran IV -1 mg Ativan IV After above interventions this patient successfully completed oral fluid challenge without nausea or vomiting. -I do not identify an emergent condition at this time. With current presentation , pt. is stable for close outpatient follow up and conservative treatment. D/ w pt. to return promptly to ED with worsening or new symptoms.- Pt. (and or responsible libertarian) verbalizes' understanding and agreement with proposed treatment plan.proposed treatment plan. DISCHARGE: At this time pt. is stable for d/c to home. Will provide printed patient care instructions, and any necessary prescriptions. Care plan and follow up instructions have been discussed with the patient prior to discharge. Labs Test 06/12/19 13:58 06/12/19 14:45 Urine Color Pale yellow Urine Appearance Clear Urine pH 6 (4.5-8.0) Urine Specific [place] 1.015 (1.005-1.035) Urine Protein Negative (NEGATIVE) Urine Glucose (UA) Negative (NEGATIVE) Urine Ketones Negative (NEGATIVE) Urine Blood Negative (NEGATIVE) Urine Nitrite Negative (NEGATIVE) Urine Bilirubin Negative (NEGATIVE) Urine Urobilinogen Normal MG/DL (0.0-1.0) Urine Leukocyte Esterase Negative (NEGATIVE) White Blood Count 16.3 K/UL (4.8-10.8) Red Blood Count 5.27 M/UL (4.70-6.10) Hemoglobin 16.1 G/DL (14.2-18.0) Hematocrit 47.1 % (42.0-52.0) Mean Corpuscular Volume 89 FL (80-99) Mean Corpuscular Hemoglobin 30.5 PG (27.0-31.0) Mean Corpuscular Hemoglobin Concent 34.1 G/DL (32.0-36.0) Red Cell Distribution Width 10.8 % (11.6-14.8) Platelet Count 333 K/UL (150-450) Mean Platelet Volume 7.0 FL (6.5-10.1) Neutrophils (%) (Auto) 70.1 % (45.0-75.0) Lymphocytes (%) (Auto) 20.2 % (20.0-45.0) Monocytes (%) (Auto) 7.7 % (1.0-10.0) Eosinophils (%) (Auto) 1.2 % (0.0-3.0) Basophils (%) (Auto) 0.9 % (0.0-2.0) Sodium Level 142 MMOL/L (136-145) Potassium Level 3.9 MMOL/L (3.5-5.1) Chloride Level 103 MMOL/L (98-107) Carbon Dioxide Level 27 MMOL/L (21-32) Anion Gap 12 mmol/L (5-15) Blood Urea Nitrogen 11 mg/dL (7-18) Creatinine 0.8 MG/DL (0.55-1.30) Estimat Glomerular Filtration Rate > 60 mL/min (>60) Glucose Level 95 MG/DL (74-106) Calcium Level 9.8 MG/DL (8.5-10.1) Total Bilirubin 0.8 MG/DL (0.2-1.0) Aspartate Amino Transf (AST/SGOT) 23 U/L (15-37) Alanine Aminotransferase (ALT/SGPT) 36 U/L (12-78) Alkaline Phosphatase 80 U/L (46-116) Total Protein 8.2 G/DL (6.4-8.2) Albumin 4.4 G/DL (3.4-5.0) Globulin 3.8 g/dL Albumin/Globulin Ratio 1.2 (1.0-2.7) Urine Opiates Screen Negative (NEGATIVE) Urine Barbiturates Screen Negative (NEGATIVE) Phencyclidine (PCP) Screen Negative (NEGATIVE) Urine Amphetamines Screen Negative (NEGATIVE) Urine Benzodiazepines Screen Negative (NEGATIVE) Urine Cocaine Screen Negative (NEGATIVE) Urine Marijuana (THC) Screen Positive (NEGATIVE) Last Vital Signs Date Time Temp Pulse Resp B/P (MAP) Pulse Ox O2 Delivery O2 Flow Rate FiO2 06/12/19 13:43 97.3 18 98/64 99 Room Air 06/12/19 13:31 69 Disposition: HOME, SELF-CARE Condition: Stable Scripts Capsaicin (CAPSAICIN) 42.5 Gm Cream..g. 1 APPLIC TP PRN for VOMITING, #42.5 GM Prov: Kallie Brasher 06/12/19 Patient Instructions: Nausea and Vomiting, Adult Additional Instructions: Take medications as directed. Limit or discontinue marijuana use Follow up with a Primary Care Provider in 3-5 days, even if your symptoms have resolved. --Please review list of primary care clinics, if you do not already have a primary care provider Return sooner to ED if new symptoms occur, or current symptoms become worse. - Please note that this Emergency Department Report was dictated using [employer] technology software, occasionally this can lead to erroneous entry secondary to interpretation by the dictation equipment. Kallie Brasher Jun 12, 2019 14:40
[2019-06-12] MEDS ORDERED: LORazepam Inj 2mg/ml 1ml IV ONE (14:45)
--- NOTE | 2019-06-12 15:07 | NUR ---
ED Nurse Note: pt from home walked in c/o bi-lat flank pain n/v . pt seen here few days ago and d/c'd. MEME established ermd alok done blood and urine sent pt medicated will monitor.
[2019-06-12 15:29] LABS: BASOPHILS % (AUTO) 0.9 % (0.0-2.0); EOSINOPHILS % (AUTO) 1.2 % (0.0-3.0); HEMATOCRIT 47.1 % (42.0-52.0); HEMOGLOBIN 16.1 G/DL (14.2-18.0); LYMPHOCYTES % (AUTO) 20.2 % (20.0-45.0); MEAN CORPUSCULAR VOLUME 89 FL (80-99); MONOCYTES % (AUTO) 7.7 % (1.0-10.0); NEUTROPHILS % (AUTO) 70.1 % (45.0-75.0); PLATELET COUNT 333 K/UL (150-450); RED BLOOD COUNT 5.27 M/UL (4.70-6.10); RED CELL DISTRIBUTION WIDTH 10.8 % (11.6-14.8); WHITE BLOOD COUNT 16.3 K/UL (4.8-10.8)
[2019-06-12 15:56] LABS: ANION GAP 12 mmol/L (5-15); BLOOD UREA NITROGEN 11 mg/dL (7-18); CALCIUM 9.8 MG/DL (8.5-10.1); CARBON DIOXIDE 27 MMOL/L (21-32); CHLORIDE 103 MMOL/L (98-107); CREATININE 0.8 MG/DL (0.55-1.30); POTASSIUM 3.9 MMOL/L (3.5-5.1); SODIUM 142 MMOL/L (136-145)
[2019-06-12 16:01] LABS: ALANINE AMINOTRANSFERASE 36 U/L (12-78); ALBUMIN 4.4 G/DL (3.4-5.0); ALBUMIN/GLOBULIN RATIO 1.2 (1.0-2.7); ALKALINE PHOSPHATASE 80 U/L (46-116); ASPARTATE AMINO TRANSFERASE 23 U/L (15-37); BILIRUBIN,TOTAL 0.8 MG/DL (0.2-1.0)
--- NOTE | 2019-06-12 16:08 | NUR ---
ED Nurse Note: spoke with Gamal top case assembler from [facility] [place] pt will be tx'd to . Awaiting further tx info Charge Nurse informed.
[2019-06-12] MEDS ORDERED: CAPSAICIN42.5 GM TP (16:28)
--- NOTE | 2019-06-12 16:39 | NUR ---
ED Nurse Note: Admission canceled per WOJCIECH Arreguin .
[2019-06-12 16:45] VITALS: BP 100/65
== END 2019-06-12 16:45 | disposition home or self-care (01) ==
LOC: EMR 14:00 → CANBEDREQ 16:23 → EMR 16:45
DX: R11.15 Cyclical vomiting syndrome unrelated to migraine (principal)
CPT/HCPCS: 36415; 80053; 80307; 81003; 85025; 96361; 96374; 96375; J2405; J7040; Z7502; 99284; J7030

== ENCOUNTER 2020-10-18 17:36 | Emergency (ER) | payer MEDICAID ==
[~2020-10-18] VITALS: Ht 180.3 cm; Wt 93.0 kg
[~2020-10-18 17:36] MED LIST changes: +CAPSAICIN42.5 GM TP
[2020-10-18] MEDS ORDERED: Morphine Sulfate 2mg/ml Inj(IV/IM USE ONLY) ONE (18:11)
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
[2020-10-18] MEDS ORDERED: Morphine Sulfate 2mg/ml Inj(IV/IM USE ONLY) IVP ONE (18:15)
--- NOTE | 2020-10-18 18:36 | Diagnostic Imaging Report ---
EXAM: CT Head Without Intravenous Contrast CLINICAL HISTORY: Trauma TECHNIQUE: Axial computed tomography images of the head/brain without intravenous contrast. CTDI is 53.4 mGy and DLP is 1045.5 mGy-cm. One or more of the following dose reduction techniques were used: automated exposure control, adjustment of the mA and/or kV according to patient size, use of iterative reconstruction technique. COMPARISON: No relevant prior studies available. FINDINGS: Brain: Unremarkable. No hemorrhage. No significant white matter disease. No edema. Ventricles: Unremarkable. No ventriculomegaly. Bones/joints: Unremarkable. No acute fracture. Soft tissues: Unremarkable. Sinuses: Unremarkable as visualized. No acute sinusitis. Mastoid air cells: Unremarkable as visualized. No mastoid effusion. IMPRESSION: No acute intracranial finding.
--- NOTE | 2020-10-18 18:38 | Diagnostic Imaging Report ---
EXAM: CT Cervical Spine Without Intravenous Contrast CLINICAL HISTORY: Trauma TECHNIQUE: Axial computed tomography images of the cervical spine without intravenous contrast. CTDI is 20.2 mGy and DLP is 511.2 mGy-cm. One or more of the following dose reduction techniques were used: automated exposure control, adjustment of the mA and/or kV according to patient size, use of iterative reconstruction technique. COMPARISON: No relevant prior studies available. FINDINGS: Vertebrae: No acute finding of the cervical spine. Discs/spinal canal/neural foramina: No acute findings. No spinal canal stenosis. Soft tissues: Unremarkable. IMPRESSION: No acute findings in the cervical spine.
[2020-10-18 18:41] LABS: ANION GAP 15 mmol/L (5-15); BLOOD UREA NITROGEN 16 mg/dL (7-18); CALCIUM 9.8 MG/DL (8.5-10.1); CARBON DIOXIDE 23 MMOL/L (21-32); CHLORIDE 101 MMOL/L (98-107); CREATININE 1.3 MG/DL (0.55-1.30); POTASSIUM 3.9 MMOL/L (3.5-5.1); SODIUM 139 MMOL/L (136-145)
[2020-10-18 18:42] LABS: INR 1.1 (0.9-1.1)
[2020-10-18 18:49] LABS: HEMATOCRIT 50.2 % (42.0-52.0); HEMOGLOBIN 15.3 G/DL (14.2-18.0); MEAN CORPUSCULAR VOLUME 90 FL (80-99); PLATELET COUNT 287 K/UL (150-450); RED BLOOD COUNT 5.57 M/UL (4.70-6.10); RED CELL DISTRIBUTION WIDTH 12.6 % (11.6-14.8)
[2020-10-18 18:51] LABS: ALANINE AMINOTRANSFERASE 32 U/L (12-78); ALBUMIN/GLOBULIN RATIO 1.6 (1.0-2.7); ALKALINE PHOSPHATASE 84 U/L (46-116); ASPARTATE AMINO TRANSFERASE 34 U/L (15-37); BILIRUBIN,TOTAL 3.3 MG/DL (0.2-1.0); WHITE BLOOD COUNT 23.4 K/UL (4.8-10.8)
--- NOTE | 2020-10-18 18:51 | Diagnostic Imaging Report ---
EXAM: CT Abdomen and Pelvis Without Intravenous Contrast CLINICAL HISTORY: Trauma TECHNIQUE: Axial computed tomography images of the abdomen and pelvis without intravenous contrast. CTDI is 12.7 mGy and DLP is 644.3 mGy-cm. One or more of the following dose reduction techniques were used: automated exposure control, adjustment of the mA and/or kV according to patient size, use of iterative reconstruction technique. COMPARISON: No relevant prior studies available. FINDINGS: Lung bases: Unremarkable. No mass. No consolidation. ABDOMEN: Liver: Unremarkable. Gallbladder and bile ducts: Unremarkable. No calcified stones. No ductal dilation. Pancreas: Unremarkable. No ductal dilation. Spleen: Unremarkable. No splenomegaly. Adrenals: Unremarkable. No mass. Kidneys and ureters: Unremarkable. No obstructing stones. No hydronephrosis. Stomach and bowel: Unremarkable. No obstruction. No mucosal thickening. PELVIS: Appendix: No findings to suggest acute appendicitis. Bladder: Unremarkable. No stones. Reproductive: Unremarkable as visualized. ABDOMEN and PELVIS: Intraperitoneal space: Unremarkable. No free air. No significant fluid collection. Bones/joints: No acute fracture. No dislocation. Soft tissues: Unremarkable. Vasculature: Unremarkable. No abdominal aortic aneurysm. Lymph nodes: Unremarkable. No enlarged lymph nodes. IMPRESSION: No evidence of intra-abdominal or intrapelvic injury. EXAM: CT Chest Without Intravenous Contrast CLINICAL HISTORY: Trauma TECHNIQUE: Axial computed tomography images of the chest without intravenous contrast. CTDI is 12.7 mGy and DLP is 300 mGy-cm. One or more of the following dose reduction techniques were used: automated exposure control, adjustment of the mA and/or kV according to patient size, use of iterative reconstruction technique. COMPARISON: No relevant prior studies available. FINDINGS: Lungs: Unremarkable. No mass. No consolidation. Pleural space: Unremarkable. No pneumothorax. No significant effusion. Heart: Unremarkable. No cardiomegaly. No significant pericardial effusion. Bones/joints: Unremarkable. No acute fracture. No dislocation. Soft tissues: Unremarkable. Vasculature: Unremarkable. No thoracic aortic aneurysm. Lymph nodes: Unremarkable. No enlarged lymph nodes. Appendix: Normal appendix. IMPRESSION: No evidence of intrathoracic injury.
[2020-10-18 18:57] LABS: BILIRUBIN,DIRECT 0.4 MG/DL (0.0-0.3)
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
--- NOTE | 2020-10-18 19:32 | NUR ---
ED Nurse Note: Urine collected and sent to lab
[2020-10-18 19:50] LABS: APPEARANCE,URINE CLEAR; BILIRUBIN, URINE NEGATIVE (NEGATIVE); COLOR,URINE PALE YELLOW; GLUCOSE, URINE (UA) NEGATIVE (NEGATIVE); KETONES,URINE 3+ (NEGATIVE); LEUKOCYTE ESTERASE ,URINE NEGATIVE (NEGATIVE); NITRITE,URINE NEGATIVE (NEGATIVE); PH,URINE 5 (4.5-8.0); PROTEIN,URINE NEGATIVE (NEGATIVE); UROBILINOGEN,URINE NORMAL MG/DL (0.0-1.0)
--- NOTE | 2020-10-18 19:59 | NUR ---
ED Nurse Note: repeat covid sent to lab
--- NOTE | 2020-10-18 21:25 | NUR ---
ED Nurse Note: TRANSFER INFO: TFR to [facility] DR. GOFF RM # [id number] NURSE # [phone] [place] ETA [id number]
--- NOTE | 2020-10-18 21:57 | NUR ---
TRANSFER TO FLOOR: Patient transferred to [facility] as ordered, per MD . Report given to ELLIE Villafana. Belongings taken with patient.
[2020-10-18 22:00] VITALS: BP 112/73
--- NOTE | 2020-10-19 17:19 | Diagnostic Imaging Report ---
Indication: Chest pain Technique: One view of the chest Comparison: 08/04/2019 Findings: Lungs and pleural spaces are clear. Heart size is normal. No significant change Impression: No acute process
== END 2020-10-18 22:00 | disposition short-term general hospital (02) ==
LOC: EMR 17:59
DX: S09.90XA Unspecified injury of head, initial encounter (principal); R07.9 Chest pain, unspecified; R00.0 Tachycardia, unspecified; M54.9 Dorsalgia, unspecified; M54.2 Cervicalgia; F31.9 Bipolar disorder, unspecified; W17.89XA Other fall from one level to another, initial encounter; Y92.9 Unspecified place or not applicable
CPT/HCPCS: 36415; 70450; 71045; 71250; 72125; 74176; 80053; 80307; 81003; 82248; 85007; 85025; 85610; 85730; 93005; 96361; 96374; J2270; Z7502; 99285